=== PATIENT | male | born 1985 | race Caucasian/White ===

== ENCOUNTER → 2020-02-23 17:30 | Outpatient (CLI) | payer OTHER, SELFPAY ==
--- NOTE | ~2020-02-23 | XR_ITS ---
EXAMINATION: XR knee LT 3V DATE: 02/23/2020 18:51 INDICATION: Bilateral knee pain and swelling TECHNIQUE: 1. [place] and standing AP and lateral views of the left knee were obtained. 2. [place] and standing AP and lateral views of the right knee were obtained COMPARISON: None. FINDINGS: Alignment is normal at both knees. No fracture. Joint spaces of both knees are normal. Small bilater al knee joint effusions, left greater than right. Soft tissues are unremarkable. IMPRESSION: 1. Small bilateral knee joint effusions, left greater than right. No osseous abnormality. Reviewed, dictated and finalized at location A. EM DRAWER IN IMPRESSION: 1. Small bilateral knee joint effusions, left greater than right. No osseous ab normality.
--- NOTE | ~2020-02-23 | XR_ITS ---
EXAMINATION: XR toe 1st RT min 2V DATE: 02/23/2020 18:51 INDICATION: Right great toe pain, erythema and swelling. TECHNIQUE: Dorsal plantar, lateral and 2 oblique views of the great toe were obtained. COMPARISON: None FINDINGS: Bone alignment is normal. No fracture. Mild osteoarthritis at the first metatarsophalangeal and all o f the visualized interphalangeal joints. Tiny ossicle at the lateral side of the first metatarsophala ngeal joint space which could represent either degenerative loose body or heterotopic ossification al janae the lateral collateral ligament complex. No cortical erosions. 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 Reviewed, dictated and finalized at location A. 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
--- NOTE | ~2020-02-23 | XR_ITS ---
EXAMINATION: XR wrist RT min 3V DATE: 02/23/2020 18:51 INDICATION: Right wrist pain TECHNIQUE: Posteroanterior, ulnar deviation, oblique, and lateral views of the right wrist were obtai bonnie. COMPARISON: none FINDINGS: Alignment is normal. No fracture. Joint spaces are normal. No cortical erosions or periosteal reactio n. Soft tissue swelling about the radial styloid process. IMPRESSION: 1. No osseous abnormality. 2. Soft tissue swelling along the radial styloid process in a region which could be seen with de Quer vain's tenosynovitis. Reviewed, dictated and finalized at location A. Y CHILDHOOD WORKER IMPRESSION: 1. No osseous abnormality. 2. Soft tissue swelling along the radial styloid process in a region which coul d be seen with de Quervain's tenosynovitis.
--- NOTE | ~2020-02-23 | XR_ITS ---
EXAMINATION: XR knee RT 3V DATE: 02/23/2020 18:51 INDICATION: Bilateral knee pain and swelling TECHNIQUE: 1. [place] and standing AP and lateral views of the left knee were obtained. 2. [place] and standing AP and lateral views of the right knee were obtained COMPARISON: None. FINDINGS: Alignment is normal at both knees. No fracture. Joint spaces of both knees are normal. Small bilatera l knee joint effusions, left greater than right. Soft tissues are unremarkable. IMPRESSION: 1. Small bilateral knee joint effusions, left greater than right. No osseous abnormality. Reviewed, dictated and finalized at location A. GY ENGINEER IMPRESSION: 1. Small bilateral knee joint effusions, left greater than right. No osseous ab normality.
== END ==
PROVIDERS: PCP Family Medicine; Visit Provider Physician Assistant
DX: M79.89 Other specified soft tissue disorders (principal); M25.461 Effusion, right knee; M25.462 Effusion, left knee; M19.071 Primary osteoarthritis, right ankle and foot
CPT/HCPCS: 73110; 73562; 73660